=== PATIENT | male | born 1985 | race Caucasian/White ===

== ENCOUNTER 2020-05-06 01:05 | Emergency (ER) | payer SELFPAY ==
[2020-05-06 01:29] VITALS: BP 169/109
== END 2020-05-06 01:29 | disposition left against medical advice (07) ==
LOC: ER 01:05
DX: Z53.21 Procedure and treatment not carried out due to patient leaving prior to being seen by health care provider (principal); F19.10 Other psychoactive substance abuse, uncomplicated